=== PATIENT | female | born 1970 ===

== ENCOUNTER 2025-03-23 10:36 | Outpatient (CLI) | payer OTHER, SELFPAY ==
--- NOTE | ~2025-03-23 | CT_ITS ---
CT of the Abdomen and Pelvis: Indication: Abdominal distention Technique: 2.5 mm axial scans were obtained through the abdomen and pelvis following intravenous adm inistration of 100 cc of Omnipaque 350. Dose reduction technique was used on this scan by utilizing a utomated exposure control and iterative reconstruction technique. The dose-length product (DLP) was 5 19.40 mGy-cm. Findings: Scans through the lung bases are unremarkable. The liver, spleen, pancreas, gallbladder, adrenals and kidneys are within normal limits. No evidence of aortic aneurysm. No lymphadenopathy. No bowel obstruction or bowel wall thickening. There is no evidence to suggest acute appendicitis. Images through the pelvis were performed. Urinary bladder unremarkable. No pelvic mass seen. Status p ost hysterectomy. Impression: No significant abnormalities seen. Reviewed, dictated and finalized at [facility]. Impression: No significant abnormalities seen.
== END 2025-03-23 10:37 | disposition home or self-care (01) ==
DX: R14.0 Abdominal distension (gaseous) (principal); R15.0 Incomplete defecation; Z80.0 Family history of malignant neoplasm of digestive organs
CPT/HCPCS: 74177; Q9967